=== PATIENT | male | born 1950 | race Caucasian/White ===

== ENCOUNTER 2019-03-05 07:50 | Day surgery (SDC) | payer BC ==
[~2019-03-05 07:50] MED LIST: Ketamine 500 mg/10 ML MDV ONE; Lactated Ringers 1,000 ML IV SCH; Lidocaine 2% 5 ML SDV ONE; Propofol 200 MG/20 ML SDV ONE
--- NOTE | 2019-03-05 08:18 | PCM.PREANE ---
Preanesthetic Assessment - Anesthesia/Transfusion/Family Hx Anesthesia History: Prior Anesthesia Without Reaction Family History of Anesthesia Reaction: No Transfusion History: No Prior Transfusion(s) - Review of Systems General: No Symptoms Pulmonary: No Symptoms Cardiovascular: No Symptoms Gastrointestinal: No Symptoms Neurological: No Symptoms Other: Reports: None - Physical Assessment Vital Signs: Last Vital Signs Temp 97.2 F 03/05/19 08:05 Pulse 72 03/05/19 08:05 Resp 16 03/05/19 08:05 BP 129/78 03/05/19 08:05 Pulse Ox 94 L 03/05/19 08:05 Height: 5 ft 10 in Weight: 117.934 kg ASA Class: 2 Mental Status: Alert & Oriented x3 Airway Class: Mallampati = 2 Dentition: Reports: Normal Dentition ROM/Head Extension: Full Lungs: Clear to Auscultation, Normal Respiratory Effort Cardiovascular: Regular Rate, Regular Rhythm - Allergies Allergies/Adverse Reactions: Allergies Allergy/AdvReac Type Severity Reaction Status Date / Time Sulfa (Sulfonamide Allergy Cannot Verified 03/02/19 07:48 Antibiotics) Remember - Blood Blood Available: No - Acknowledgements Anesthesia Type Planned: General Anesthesia Pt an Appropriate Candidate for the Planned Anesthesia: Yes Alternatives and Risks of Anesthesia Discussed w Pt/Guardian: Yes Pt/Guardian Understands and Agrees with Anesthesia Plan: Yes Additional Comments: PMH: htn, ckd3 with egfr of 46, sleeps better at night with head elevated, no testing or dx of grecia, does have large neck circumference PLAN: tiva PreAnesthesia Questionnaire HEENT History: Reports: Other (See Below) Other HEENT History: wears glasses Cardiovascular History: Reports: Hypertension Respiratory History: Reports: None Gastrointestinal History: Reports: Colon Polyp, Diverticulosis Other Gastrointestinal History: occasional heartburn Genitourinary History: Reports: None Musculoskeletal History: Reports: None Neurological History: Reports: None Psychiatric History: Reports: None Endocrine/Metabolic History: Reports: Obesity/BMI 30+ Hematologic History: Reports: None Immunologic History: Reports: None Oncologic (Cancer) History: Reports: None Dermatologic History: Reports: None - Past Surgical History Head Surgeries/Procedures: Reports: None HEENT Surgical History: Reports: None Cardiovascular Surgical History: Reports: None Respiratory Surgical History: Reports: None GI Surgical History: Reports: Colonoscopy Male Surgical History: Reports: None Endocrine Surgical History: Reports: None Neurological Surgical History: Reports: None Musculoskeletal Surgical History: Reports: None Oncologic Surgical History: Reports: None Dermatological Surgical History: Reports: None - SUBSTANCE USE Smoking Status *Q: Never Smoker Recreational Drug Use History: No - HOME MEDS Home Medications: Home Meds Aspirin [Adult Low Dose Aspirin EC] 1 tab PO DAILY 11/14/15 [History] Carvedilol 25 mg PO BID 11/14/15 [History] Loratadine [Claritin] 10 mg PO DAILY PRN 03/02/19 [History] hydroCHLOROthiazide [Hydrochlorothiazide] 25 mg PO DAILY 03/02/19 [History] - CURRENT (IN HOUSE) MEDS Current Meds: Current Medications Lactated Ringer's (Ringers, Lactated) 1,000 mls @ 125 mls/hr IV ASDIRECTED [facility] Last Admin: 03/05/19 08:10 Dose: 125 mls/hr Discontinued Medications Ketamine HCl (Ketalar) Confirm Administered Dose 500 mg .ROUTE .STK-MED ONE Stop: 03/05/19 07:50 Lidocaine (Xylocaine-Mpf 2%) Confirm Administered Dose 5 ml .ROUTE .STK-MED ONE Stop: 03/05/19 07:50 Propofol (Diprivan 20 Ml) Confirm Administered Dose 200 mg .ROUTE .STK-MED ONE Stop: 03/05/19 07:50 Propofol (Diprivan 20 Ml) Confirm Administered Dose 200 mg .ROUTE .STK-MED ONE Stop: 03/05/19 07:50
--- NOTE | 2019-03-05 09:40 | PCM.OPNOTE ---
- General Post-Op/Procedure Note Date of Surgery/Procedure: 03/05/19 Operative Procedure(s): Esophagogastroduodenoscopy with gastric and esophageal biopsies Pre Op Diagnosis: Persistent nausea and vomiting Post-Op Diagnosis: Mild gastritis. Hiatal hernia with acute esophagitis. Anesthesia Technique: MAC (ASA II) Primary Surgeon: Baljit Cheema Condition: Good Free Text/Narrative:: DICTATION [id number] CPT CODE [id number]
[2019-03-05] MEDS ORDERED: Lactated Ringers 1,000 ML IV SCH (09:45)
[2019-03-05 10:18] VITALS: BP 131/74; PULSE 84
--- NOTE | 2019-03-05 12:10 | OR ---
SURGEON: Baljit Cheema M.D. DATE OF PROCEDURE: 03/05/2019 OPERATION PERFORMED: Esophagogastroduodenoscopy with gastric and esophageal biopsies. PRIMARY SURGEON: Baljit Cheema MD. ANESTHESIA: MAC. ASA CLASSIFICATION: II. PREOPERATIVE DIAGNOSIS: Persistent nausea and vomiting. POSTOPERATIVE DIAGNOSES: 1. Mild gastritis. 2. Hiatal hernia with distal esophagitis. DESCRIPTION OF PROCEDURE: The patient was taken to the endoscopy room and positioned on the endoscopy table in the supine position. Time-out was called for appropriate identification of the patient and procedure. Monitored anesthesia care was provided. A bite block was placed between the patient's teeth. The gastroscope was inserted through the bite block into the oropharynx and advanced without difficulty through the esophagus and stomach into the duodenum where examination was now carried out in a retrograde fashion. The duodenum shows no acute inflammatory changes or ulcerations. The distal stomach does show mild gastritis. Antral biopsies were obtained to rule out Helicobacter pylori. The gastroscope was retroflexed to visualize the proximal stomach. The patient does have a hiatal hernia that is seen from below, but best seen from above. The gastroscope was then straightened and slowly withdrawn, carefully visualizing both the greater and lesser curvatures. No acute ulcerations were noted proximally. No tumors were seen. As the gastroscope was withdrawn, the hiatal hernia was again identified. The distal esophagus for approximately 2 cm below the Z-line does demonstrate acute esophagitis and separate biopsies of this area were obtained. The mid and proximal esophagus demonstrated good contractility. No mid or proximal lesions were identified. Vocal cords were very briefly visualized as the scope was withdrawn and noted to move symmetrically. The oropharynx was then suctioned free of secretions with the gastroscope. The gastroscope was then removed with the patient having tolerated the procedure well. He was taken to recovery room in stable condition. MONTY / GERMÁN /[id number]
--- NOTE | 2019-03-05 12:17 | PCM48HPAN ---
Post Anesthesia Note - EVALUATION WITHIN 48HRS OF ANESTHETIC Vital Signs in Normal Range: Yes Patient Participated in Evaluation: Yes Respiratory Function Stable: Yes Airway Patent: Yes Cardiovascular Function Stable: Yes Hydration Status Stable: Yes Pain Control Satisfactory: Yes Nausea and Vomiting Control Satisfactory: Yes Mental Status Recovered: Yes Vital Signs: Last Vital Signs Temp 97.2 F 03/05/19 10:00 Pulse 84 03/05/19 10:00 Resp 14 03/05/19 10:00 BP 131/74 03/05/19 10:00 Pulse Ox 94 L 03/05/19 10:00
--- NOTE | 2019-03-05 12:17 | PCM.POSTAN ---
POST ANESTHESIA ASSESSMENT - MENTAL STATUS Mental Status: Alert, Oriented - VITAL SIGNS Vital Signs: Last Vital Signs Temp 97.2 F 03/05/19 10:00 Pulse 84 03/05/19 10:00 Resp 14 03/05/19 10:00 BP 131/74 03/05/19 10:00 Pulse Ox 94 L 03/05/19 10:00 - RESPIRATORY Respiratory Status: Respiratory Rate WNL, Airway Patent, O2 Saturation Stable - CARDIOVASCULAR CV Status: Pulse Rate WNL, Blood Pressure Stable - GASTROINTESTINAL GI Status: No Symptoms - POST OP HYDRATION Hydration Status: Adequate & Stable
== END 2019-03-05 10:20 | disposition home or self-care (01) ==
LOC: MW.SDS 07:50
PROVIDERS: ATTEND Surgery
DX: K29.50 Unspecified chronic gastritis without bleeding (principal); K20.9 Esophagitis, unspecified; K44.9 Diaphragmatic hernia without obstruction or gangrene; I12.9 Hypertensive chronic kidney disease with stage 1 through stage 4 chronic kidney disease, or unspecified chronic kidney disease; N18.3 Chronic kidney disease, stage 3 (moderate); E66.9 Obesity, unspecified; Z88.2 Allergy status to sulfonamides; Z79.82 Long term (current) use of aspirin; Z79.899 Other long term (current) drug therapy; Z68.38 Body mass index [BMI] 38.0-38.9, adult
CPT/HCPCS: 43239; J2001; J2704; J7120

== ENCOUNTER 2020-12-01 06:44 | Day surgery (SDC) | payer MEDICARE, OTHER ==
[~2020-12-01 06:44] MED LIST changes: -Ketamine 500 mg/10 ML MDV ONE; -Lidocaine 2% 5 ML SDV ONE; -Propofol 200 MG/20 ML SDV ONE
[2020-12-01] MEDS ORDERED: Propofol 200 MG/20 ML SDV ONE (07:06)
[2020-12-01] MEDS ORDERED: Ondansetron 4 MG/2 ML SDV ONE (07:06)
[2020-12-01] MEDS ORDERED: Midazolam 1 MG/ML 2 ML SDV ONE (07:06)
[2020-12-01] MEDS ORDERED: fentaNYL 100 MCG/2 ML SDV ONE (07:06)
[2020-12-01] MEDS ORDERED: Lidocaine 2% 5 ML SDV ONE (07:07)
[2020-12-01] MEDS ORDERED: Albuterol 0.083% 2.5 MG/3 ML Neb Soln NEB PRN (07:16)
[2020-12-01] MEDS ORDERED: Ondansetron 4 MG/2 ML SDV IVPUSH PRN (07:16)
--- NOTE | 2020-12-01 07:23 | PCM.PREANE ---
Preanesthetic Assessment - Anesthesia/Transfusion/Family Hx Anesthesia History: Prior Anesthesia Without Reaction Transfusion History: No Prior Transfusion(s) - Review of Systems General: No Symptoms Pulmonary: No Symptoms Cardiovascular: No Symptoms Gastrointestinal: No Symptoms Neurological: No Symptoms Other: Reports: None - Physical Assessment NPO Status Date: 12/01/20 NPO Status Time: 00:00 Vital Signs: Last Vital Signs Temp 97.9 F 12/01/20 06:50 Pulse 75 12/01/20 06:50 Resp 15 12/01/20 06:50 BP 155/78 H 12/01/20 06:50 Pulse Ox 96 12/01/20 06:50 Height: 5 ft 10 in Weight: 263 lb ASA Class: 2 Mental Status: Alert & Oriented x3 Dentition: Reports: Normal Dentition ROM/Head Extension: Full Lungs: Clear to Auscultation, Normal Respiratory Effort Cardiovascular: Regular Rate, Regular Rhythm - Allergies Allergies/Adverse Reactions: Allergies Allergy/AdvReac Type Severity Reaction Status Date / Time Sulfa (Sulfonamide Allergy Cannot Verified 03/02/19 07:48 Antibiotics) Remember walnuts Allergy mouth Uncoded 11/27/20 11:42 breaks out - Blood Blood Available: No - Acknowledgements Anesthesia Type Planned: General Anesthesia Pt an Appropriate Candidate for the Planned Anesthesia: Yes Alternatives and Risks of Anesthesia Discussed w Pt/Guardian: Yes Pt/Guardian Understands and Agrees with Anesthesia Plan: Yes PreAnesthesia Questionnaire HEENT History: Reports: Other (See Below) Other HEENT History: wears glasses Cardiovascular History: Reports: Hypertension Respiratory History: Reports: None Gastrointestinal History: Reports: Colon Polyp, Diverticulosis Other Gastrointestinal History: occasional heartburn Genitourinary History: Reports: None Musculoskeletal History: Reports: None Neurological History: Reports: None Psychiatric History: Reports: None Endocrine/Metabolic History: Reports: Other (See Below) Other Endocrine/Metabolic History: states is pre-diabetic Hematologic History: Reports: None Immunologic History: Reports: None Oncologic (Cancer) History: Reports: None Dermatologic History: Reports: None - Infectious Disease History Infectious Disease History: Reports: None - Past Surgical History Head Surgeries/Procedures: Reports: None HEENT Surgical History: Reports: None Cardiovascular Surgical History: Reports: None Respiratory Surgical History: Reports: None GI Surgical History: Reports: Colonoscopy, EGD Male Surgical History: Reports: None Endocrine Surgical History: Reports: None Neurological Surgical History: Reports: None Musculoskeletal Surgical History: Reports: None Oncologic Surgical History: Reports: None Dermatological Surgical History: Reports: None - SUBSTANCE USE Tobacco Use Status *Q: Never Tobacco User - HOME MEDS Home Medications: Home Meds Aspirin [Adult Low Dose Aspirin EC] 1 tab PO DAILY 11/14/15 [History] carvediloL [Carvedilol] 25 mg PO BID 11/14/15 [History] Loratadine [Claritin] 10 mg PO DAILY PRN 03/02/19 [History] hydroCHLOROthiazide [Hydrochlorothiazide] 25 mg PO DAILY 03/02/19 [History] Canagliflozin [Invokana] 1 tab PO DAILY 11/27/20 [History] Loratadine [Claritin] 1 tab PO DAILY 11/27/20 [History] Omeprazole 20 mg PO DAILY 11/27/20 [History] - CURRENT (IN HOUSE) MEDS Current Meds: Current Medications Albuterol (Albuterol 0.083% 2.5 Mg/3 Ml Neb Soln) 2.5 mg NEB ONETIME PRN PRN Reason: Wheezing Lactated Ringer's (Ringers, Lactated) 1,000 mls @ 125 mls/hr IV ASDIRECTED [facility] Last Admin: 12/01/20 07:01 Dose: 125 mls/hr Documented by: Ondansetron HCl (Ondansetron 4 Mg/2 Ml Sdv) 4 mg IVPUSH ONETIME PRN PRN Reason: Nausea/Vomiting Discontinued Medications Fentanyl (Fentanyl 100 Mcg/2 Ml Sdv) Confirm Administered Dose 100 mcg .ROUTE .STK-MED ONE Stop: 12/01/20 07:07 Lidocaine (Lidocaine 2% 5 Ml Sdv) Confirm Administered Dose 5 ml .ROUTE .STK-MED ONE Stop: 12/01/20 07:08 Midazolam HCl (Midazolam 1 Mg/Ml 2 Ml Sdv) Confirm Administered Dose 2 mg .ROUTE .STK-MED ONE Stop: 12/01/20 07:07 Ondansetron HCl (Ondansetron 4 Mg/2 Ml Sdv) Confirm Administered Dose 4 mg .ROUTE .STK-MED ONE Stop: 12/01/20 07:07 Propofol (Propofol 200 Mg/20 Ml Sdv) Confirm Administered Dose 400 mg .ROUTE .STK-MED ONE Stop: 12/01/20 07:07
[2020-12-01] MEDS ORDERED: Lactated Ringers 1,000 ML IV SCH (09:00)
--- NOTE | 2020-12-01 09:02 | PCM.OPNOTE ---
- General Post-Op/Procedure Note Date of Surgery/Procedure: 12/01/20 Operative Procedure(s): Esophagogastroduodenoscopy with gastric and esophageal biopsies. Colonoscopy. Pre Op Diagnosis: History of Weeks's esophagus. Personal history of colon polyps. Family history of colon cancer. Post-Op Diagnosis: Mild chronic gastritis. Weeks's esophagus. Sigmoid diverticulosis. Anesthesia Technique: MAC (ASA II) Primary Surgeon: Baljit Cheema Explosive Operator: Eva Martin Condition: Good Free Text/Narrative:: DICTATION [id number] CPT CODE [id number]
--- NOTE | 2020-12-01 09:05 | PCM.POSTAN ---
POST ANESTHESIA ASSESSMENT - MENTAL STATUS Mental Status: Alert, Oriented - VITAL SIGNS Vital Signs: Last Vital Signs Temp 97.9 F 12/01/20 06:50 Pulse 75 12/01/20 06:50 Resp 15 12/01/20 06:50 BP 155/78 H 12/01/20 06:50 Pulse Ox 96 12/01/20 06:50 - RESPIRATORY Respiratory Status: Respiratory Rate WNL, Airway Patent, O2 Saturation Stable - CARDIOVASCULAR CV Status: Pulse Rate WNL, Blood Pressure Stable - GASTROINTESTINAL GI Status: No Symptoms - POST OP HYDRATION Hydration Status: Adequate & Stable
--- NOTE | 2020-12-01 09:06 | PCM48HPAN ---
Post Anesthesia Note - EVALUATION WITHIN 48HRS OF ANESTHETIC Vital Signs in Normal Range: Yes Patient Participated in Evaluation: Yes Respiratory Function Stable: Yes Airway Patent: Yes Cardiovascular Function Stable: Yes Hydration Status Stable: Yes Pain Control Satisfactory: Yes Nausea and Vomiting Control Satisfactory: Yes Mental Status Recovered: Yes Vital Signs: Last Vital Signs Temp 97.9 F 12/01/20 06:50 Pulse 65 12/01/20 09:02 Resp 12 12/01/20 09:02 BP 105/58 L 12/01/20 09:02 Pulse Ox 94 L 12/01/20 09:02
[2020-12-01 09:15] VITALS: BP 106/62; PULSE 60
--- NOTE | 2020-12-01 14:51 | OR ---
SURGEON: Baljit Cheema M.D. DATE OF PROCEDURE: 12/01/2020 OPERATION PERFORMED: Colonoscopy. PRIMARY SURGEON: Baljit Cheema M.D. SWIMMING COACH: Account Retention Representative: KAREEM Melchor student. ANESTHESIA: MAC. ASA CLASSIFICATION: II. PREOPERATIVE DIAGNOSES: 1. Personal history of colon polyps. 2. Family history of colon cancer. POSTOPERATIVE DIAGNOSIS: Mild sigmoid diverticulosis. DESCRIPTION OF PROCEDURE: With the patient having completed upper GI endoscopy, he was maintained in the left lateral decubitus position. The colonoscope was inserted into the rectum and advanced with minimal difficulty to the cecum. The cecum was identified by internal landmarks and external pressure. The appendiceal orifice was visualized. The colonoscope was retroflexed in the cecum to visualize the ascending colon from below and then straightened and slowly withdrawn. The cecum, ascending colon, hepatic flexure, transverse colon, splenic flexure, and descending colon showed no tumors, polyps, diverticula, or angiodysplastic changes. The colonoscope was withdrawn through the sigmoid which did show mild- to-moderate sigmoid diverticulosis. No stricture, spasm, or bleeding was noted. No polyps were encountered in the sigmoid colon. The colonoscope was then withdrawn to the rectum and retroflexed to visualize the anal orifice from above. No acute hemorrhoidal changes were noted. The colonoscope was then straightened, the rectum aspirated, and the colonoscope removed. The patient tolerated the procedure well and was taken to recovery room in stable condition. MONTY / GERMÁN /[id number] NEHA
--- NOTE | 2020-12-01 16:13 | OR ---
SURGEON: Baljit Cheema M.D. DATE OF PROCEDURE: 12/01/2020 OPERATION PERFORMED: Esophagogastroduodenoscopy with biopsy. PRIMARY SURGEON: Baljit Cheema M.D. PIZZA COOK: Soft Crab Shedder: KAREEM Melchor student. ANESTHESIA: MAC. ASA CLASSIFICATION: II. PREOPERATIVE DIAGNOSIS: Personal history of Weeks esophagus, proven by biopsy. POSTOPERATIVE DIAGNOSES: 1. Mild chronic gastritis. 2. Weeks esophagus. DESCRIPTION OF PROCEDURE: The patient was taken to the endoscopy room and positioned on the endoscopy table in the left lateral decubitus position. Time-out was called for appropriate identification of the patient and procedure. Monitored anesthesia care was provided. The bite block was placed between the patient's teeth. The gastroscope was inserted through the bite block and advanced through the oropharynx, into the esophagus, and subsequently through the esophagus and stomach into the duodenum. Duodenum showed no acute inflammatory changes or ulcerations. The gastroscope was then withdrawn into the stomach which did show mild chronic gastritis. Antral biopsies were obtained to look for the presence of Helicobacter pylori. The gastroscope was retroflexed to visualize the proximal stomach. The patient did have a hiatal hernia that could be seen both from above and below. The greater and lesser curvatures were carefully visualized and showed no acute ulcerations. No gastric polyps were identified. The gastroscope was then straightened and slowly withdrawn again visualizing the greater and lesser curvatures as the scope was withdrawn. No other acute lesions were identified within the stomach. At approximately 35 cm from the incisors, there were changes in the mucosa suggestive of Weeks. Biopsies of this area were taken separately. The esophagus itself demonstrated good contractility and beginning from 35 cm proximally to the oropharynx, the esophageal lining appeared quite healthy. The vocal cords were briefly visualized as the scope was withdrawn. No vocal cord lesions were identified. The gastroscope was then removed with the patient having tolerated this portion of the procedure well. Following colonoscopy, he was taken to recovery room in stable condition. MONTY / GERMÁN /[id number] MTDIsabella
== END 2020-12-01 09:45 | disposition home or self-care (01) ==
LOC: MW.SDS 06:44
PROVIDERS: ATTEND Surgery
DX: K29.50 Unspecified chronic gastritis without bleeding (principal); K22.70 Barrett's esophagus without dysplasia; K63.89 Other specified diseases of intestine; K44.9 Diaphragmatic hernia without obstruction or gangrene; K57.30 Diverticulosis of large intestine without perforation or abscess without bleeding; I10 Essential (primary) hypertension; R73.03 Prediabetes; E66.9 Obesity, unspecified; Z68.37 Body mass index [BMI] 37.0-37.9, adult; Z88.2 Allergy status to sulfonamides; Z79.82 Long term (current) use of aspirin; Z79.899 Other long term (current) drug therapy; Z86.010 Personal history of colon polyps; Z80.0 Family history of malignant neoplasm of digestive organs
CPT/HCPCS: 43239; 45378; 88305; 88342; J2250; J2704; J3010; J7120; 00813; J2405